=== PATIENT | male | born 1995 | race Caucasian/White ===

== ENCOUNTER 2018-06-04 17:13 | Emergency (ER) | payer BC ==
[2018-06-04 17:54] LABS: Amorphous Sediment,Urine Occasional /hpf; Appearance,Urine Clear (Clear); Bacteria,Urine Rare /hpf; Bilirubin,Urine Negative (Negative); Blood,Urine Negative (Negative); Color,Urine Yellow; Glucose,Urine (UA) Negative (Negative); Hyaline Casts,Urine 3 /lpf (0-2); Ketones,Urine Negative (Negative); Leukocyte Esterase,Urine Negative (Negative); Mucus,Urine Few /hpf; Nitrite,Urine Negative (Negative); Protein,Urine 1+ (Negative); RBC,Urine 1 /hpf (0-5); Specific Gravity,Urine 1.023 (1.001-1.035); WBC,Urine 4 /hpf (0-5)
--- NOTE | 2018-06-04 17:54 | ED ---
General Adult HPI - General Chief complaint: Abdominal Pain Stated complaint: Low Back Pain Source: patient Mode of arrival: ambulatory Limitations: no limitations - History of Present Illness Initial comments: Dictation was produced using [employer] dictation software. please excuse any grammatical, word or spelling errors. Chief Complaint: 22-year-old male with past medical history of kidney stones presents with left flank pain. History of Present Illness: There is care for left flank pain. He was worried he is having kidney stones. People at the urgent care and sent over to the emergency department to rule out kidney stones. Patient has history of kidney stones approximate 7 years ago. He states he passed all 5 of them. Patient states he feels slightly nauseous however not having any any vomiting. Denies any constitutional symptoms. He does complain of some darkness to his urine recently. The ROS documented in this emergency department record has been reviewed and confirmed by me. Those systems with pertinent positive or negative responses have been documented in the HPI. All other systems are other negative and/or noncontributory. - Related Data Previous Rx's Medication Instructions Recorded HYDROcodone/APAP 5-325MG [[place] 5] 1 each PO Q6HR PRN #8 tab 06/04/18 Ketorolac [Toradol] 10 mg PO Q6HR PRN #10 tab 06/04/18 Allergies Allergy/AdvReac Type Severity Reaction Status Date / Time No Known Allergies Allergy Verified 06/04/18 17:18 Review of Systems ROS Statement: Those systems with pertinent positive or pertinent negative responses have been documented in the HPI. ROS Other: All systems not noted in ROS Statement are negative. Past Medical History Past Medical History: No Reported History History of Any Multi-Drug Resistant Organisms: None Reported Past Surgical History: No Surgical Hx Reported Past Psychological History: No Psychological Hx Reported Smoking Status: Never smoker Past Alcohol Use History: None Reported Past Drug Use History: None Reported General Exam - General Exam Comments Initial Comments: PHYSICAL EXAM: General Impression: Alert and oriented x3, not in acute distress HEENT: Normocephalic atraumatic, extra-ocular movements intact, pupils equal and reactive to light bilaterally, mucous membranes moist. Cardiovascular: Heart regular rate and rhythm, S1&S2 audible, no murmurs, rubs or gallops Chest: Lungs clear to auscultation bilaterally, no rhonchi, no wheeze, no rales Abdomen: Bowel sounds present, abdomen soft, non-tender, non-distended, no organomegaly Musculoskeletal: Pulses present and equal in all extremities, no peripheral edema Motor: Power 5/5 bilaterally, no focal deficits noted Neurological: CN II-XII grossly intact, no focal motor or sensory deficits noted Skin: Intact with no visualized rashes Psych: Normal affect and mood Limitations: no limitations Course Vital Signs 06/04/18 17:16 Temperature 98.3 F Pulse Rate 55 L Respiratory 18 Rate Blood Pressure 116/69 O2 Sat by Pulse 99 Oximetry Medical Decision Making - Medical Decision Making ED course: 22 yo male with past medical history of kidney stones 7 years ago presents with left flank pain. Vital signs upon arrival are within acceptable limits.Laboratory evaluation obtained. CBC unremarkable, metabolic panel unremarkable. Urinalysis is negative. CT of the abdomen and pelvis without contrast demonstrates multiple kidney stones clustered in the lower pole of the left kidney. The common a variety of sizes up to 9 mm. There does not appear to be any ureteral stones. Patient's pain is controlled at this time. Patient told that he has these stones in his left kidney with kidney cyst. Patient told that these stones at anytime may drop and his ureter causing severe left- sided flank pain. Patient given follow-up with urologist in the area. Patient given prescription for IV analgesics in anticipation of pain secondary to nephrolithiasis. - Lab Data Result diagrams: 06/04/18 17:58 06/04/18 17:58 Lab Results 06/04/18 06/04/18 06/04/18 Range/Units 17:35 17:58 17:58 WBC 7.7 (3.8-10.6) k/uL RBC 5.45 (4.30-5.90) m/uL Hgb 16.0 (13.0-17.5) gm/dL Hct 48.2 (39.0-53.0) % MCV 88.4 (80.0-100.0) fL MCH 29.3 (25.0-35.0) pg MCHC 33.2 (31.0-37.0) g/dL RDW 13.0 (11.5-15.5) % Plt Count 303 (150-450) k/uL Neutrophils % 56 % Lymphocytes % 32 % Monocytes % 6 % Eosinophils % 3 % Basophils % 1 % Neutrophils # 4.3 (1.3-7.7) k/uL Lymphocytes # 2.5 (1.0-4.8) k/uL Monocytes # 0.5 (0-1.0) k/uL Eosinophils # 0.2 (0-0.7) k/uL Basophils # 0.0 (0-0.2) k/uL Sodium 143 (137-145) mmol/L Potassium 4.6 (3.5-5.1) mmol/L Chloride 105 (98-107) mmol/L Carbon Dioxide 29 (22-30) mmol/L Anion Gap 9 mmol/L BUN 12 (9-20) mg/dL Creatinine 0.82 (0.66-1.25) mg/dL Est GFR (CKD-EPI)AfAm >90 (>60 ml/min/1.73 sqM) Est GFR (CKD-EPI)NonAf >90 (>60 ml/min/1.73 sqM) Glucose 94 (74-99) mg/dL Calcium 9.3 (8.4-10.2) mg/dL Urine Color Yellow Urine Appearance Clear (Clear) Urine pH 7.0 (5.0-8.0) Ur Specific [place] 1.023 (1.001-1.035) Urine Protein 1+ H (Negative) Urine Glucose (UA) Negative (Negative) Urine Ketones Negative (Negative) Urine Blood Negative (Negative) Urine Nitrite Negative (Negative) Urine Bilirubin Negative (Negative) Urine Urobilinogen 3.0 (<2.0) mg/dL Ur Leukocyte Esterase Negative (Negative) Urine RBC 1 (0-5) /hpf Urine WBC 4 (0-5) /hpf Amorphous Sediment Occasional H (None) /hpf Urine Bacteria Rare H (None) /hpf Hyaline Casts 3 H (0-2) /lpf Urine Mucus Few H (None) /hpf Disposition Clinical Impression: Nephrolithiasis Disposition: HOME SELF-CARE Condition: Good Instructions: Kidney Stones (ED) Prescriptions: HYDROcodone/APAP 5-325MG [[place] 5] 1 each PO Q6HR PRN #8 tab PRN Reason: Pain Ketorolac [Toradol] 10 mg PO Q6HR PRN #10 tab PRN Reason: Pain Is patient prescribed a controlled substance at d/c from ED?: Yes If prescribed controlled substance>3 days was MAPS reviewed?: Prescribed <3 Days Referrals: None,Stated [Primary Care Provider] - 1-2 days Stu Crespo MD [STAFF PHYSICIAN] - 1-2 days Time of Disposition: 19:06
[2018-06-04 18:08] LABS: Basophils % (A) 1 %; Eosinophils # (A) 0.2 k/uL (0-0.7); Eosinophils % (A) 3 %; HCT 48.2 % (39.0-53.0); Lymphocytes # (A) 2.5 k/uL (1.0-4.8); Lymphocytes % (A) 32 %; MCH 29.3 pg (25.0-35.0); MCHC 33.2 g/dL (31.0-37.0); MCV 88.4 fL (80.0-100.0); Mean Platelet Volume 6.2; Monocytes # (A) 0.5 k/uL (0-1.0); Monocytes % (A) 6 %; Neutrophils # (A) 4.3 k/uL (1.3-7.7); Neutrophils % (A) 56 %; Platelet Count 303 k/uL (150-450); RBC 5.45 m/uL (4.30-5.90); WBC 7.7 k/uL (3.8-10.6)
[2018-06-04 18:20] LABS: Anion Gap 9 mmol/L; Blood Urea Nitrogen 12 mg/dL (9-20); Calcium 9.3 mg/dL (8.4-10.2); Carbon Dioxide 29 mmol/L (22-30); Chloride 105 mmol/L (98-107); Glucose 94 mg/dL (74-99); Potassium 4.6 mmol/L (3.5-5.1); Sodium 143 mmol/L (137-145)
--- NOTE | 2018-06-04 18:48 | CT ---
EXAMINATION TYPE: CT abdomen pelvis wo con DATE OF EXAM: 06/04/2018 COMPARISON: None HISTORY: 22-year-old male Left side flank pain. CT DLP: 858 mGycm. Automated exposure control for dose reduction was used. TECHNIQUE: Contiguous axial scanning of the abdomen and pelvis without IV contrast. Coronal and sagit delfina reconstructions performed. FINDINGS: Heart normal size without pericardial effusion. Lung bases clear without pleural effusion. Liver upper limits of normal in size at 17.2 cm. Noncontrast appearance of the liver, gallbladder, ad renal glands There are approximately 5 closely grouped calculi in the lower pole left kidney measuring up to 9 mm. There is mild left-sided pelviectasis or extrarenal pelvis. Focal 2.2 cm hypodensity mid left kidney , possible cyst. Spleen borderline enlarged at 13.6 cm with an anterior splenule. Focal 2.7 cm hypodense lesion anterior upper pole right kidney suggestive of a cyst. No suspicious calcification seen along the course of either ureter. Scattered borderline to mildly enlarged mesenteric lymph nodes measuring up to 8 mm, for example, axi al image 77 probably reactive/post inflammatory. Normal appendix. Mild overall stool burden. No pericolonic inflammatory change. No dilated small bowel, free fluid, or free air. Bladder is collapsed but shows mild circumferential wall thickening. No abnormal fluid collection in the pelvis or pelvic lymphadenopathy. Bones: Mild disc herniation at L4-L5. No osseous destructive process. IMPRESSION: 1. A cluster of grouped calculi in the lower pole left kidney measuring up to 9 mm. There is mild le ft-sided pelviectasis versus an extrarenal pelvis. No suspicious calcification along the course of t he left ureter to support obstructive uropathy. 2. A 2.2 cm hypodensity mid left kidney, possible cyst. Also, suspected 2.7 cm cyst upper pole right kidney. Nonemergent follow-up renal ultrasound recommended to confirm. 3. Borderline hepatosplenomegaly (liver 17.2 cm and spleen 13.6 cm). 4. Scattered borderline and mildly enlarged mesenteric lymph nodes measuring up to 8 mm are nonspeci fic and may be reactive/post inflammatory. Correlate for possible mild mesenteric adenitis. 5. Mild circumferential bladder wall thickening may relate to underdistention or cystitis.
[2018-06-04 19:24] VITALS: BP 123/70; PULSE 62; RESP 16; TEMP 98.8
== END 2018-06-04 19:24 | disposition home or self-care (01) ==
LOC: EC 17:13
DX: N20.0 Calculus of kidney (principal); N28.1 Cyst of kidney, acquired
CPT/HCPCS: 36415; 74176; 80048; 81001; 85025; 99284